=== PATIENT | female | born 1955 | race Caucasian/White ===

== ENCOUNTER 2017-02-03 08:28 | Day surgery (SDC) | payer MEDICARE ==
[~2017-02-03] VITALS: Ht 154.9 cm; Wt 67.4 kg
[~2017-02-03 08:28] MED LIST: CALC-267 PO; CHOL50009 PO; GLUC100015 PO; INHALER; NAPR-688 PO; OMEG-135 PO; RANI25TA PO; SYMB80120 INHALATION
[2017-02-03] MEDS ORDERED: PROPOFOL 40 ML ONE (09:01)
[2017-02-03] MEDS ORDERED: LIDOCAINE 2% (SDV) 5 ML INJ ONE (09:01)
[2017-02-03] MEDS ORDERED: VENTOLIN (09:11)
[2017-02-03] MEDS ORDERED: FENOFIBRATE (09:11)
[2017-02-03 09:13] VITALS: Ht 154.9 cm; Wt 67.4 kg
[2017-02-03 09:34] VITALS: BP 136/69; PULSE 68; RESP 18
--- NOTE | 2017-02-03 10:23 | OPPN ---
Date/Time of Note Date/Time of Note DATE: 02/03/17 TIME: 10:22 Operative Report Preoperative Diagnosis Abdominal pain Chronic heartburn Change in bowel habit History of colon polyps Postoperative Diagnosis Gastroesophageal reflux disease Gastritis with erosions Internal hemorrhoids No colon neoplasm is identified Operation/Procedure Performed Esophagogastroduodenoscopy and biopsy Colonoscopy Surgeon see signature line litigation legal assistant None Anesthesia: MAC Estimated blood loss: none Transfusion Required none Specimen Gastric mucosal biopsy Grafts/Implants none Complications none KRISTA MAURICE MD Feb 03, 2017 10:23
[2017-02-03 10:54] VITALS: BP 109/58; PULSE 56; RESP 18
--- NOTE | 2017-02-04 06:47 | GILP ---
DATE OF PROCEDURE: NAME OF PROCEDURES: 1. Esophagogastroduodenoscopy and biopsy. 2. Colonoscopy. SURGEON: Krista Francisco MD PREOPERATIVE DIAGNOSES: 1. Abdominal pain. 2. Chronic heartburn. 3. Change in the bowel habit. 4. History of colon polyps. POSTOPERATIVE DIAGNOSES: 1. Gastroesophageal reflux disease. 2. Gastritis with erosions. 3. Gastric mucosal biopsies were taken for Helicobacter pylori test. 4. Colonoscopy all the way to the cecum. 5. Internal hemorrhoids. 6. No colon neoplasm was identified. INDICATION FOR THE PROCEDURE: Ms. Neema Johnson is a 61-year-old female patient who had upper abdomin al pain and chronic heartburn, not responding to therapy. She also noticed a change in the bowel luther bit. She had history of colon polyps. The patient was scheduled for endoscopy and colonoscopy for further evaluation. The procedures and possible complications are well explained to the patient. The patient understood and consented to the procedure. DESCRIPTION OF PROCEDURE: Under the influence of anesthesia, the gastroscope was carefully introduc ed into the esophagus and under direct vision, it was advanced to the stomach and through the pyloru s into the duodenal bulb and descending duodenum. FINDINGS: ESOPHAGUS: The patient had gastroesophageal reflux disease. STOMACH: She had gastritis with erosions. Gastric mucosal biopsies were taken for H. pylori test. DUODENUM: Normal. The colonoscope was carefully introduced in the rectum and under direct vision, it was advanced all the way to the cecum. FINDINGS: The patient had internal hemorrhoids. No colon neoplasm was identified. She tolerated the procedures very well and there was no complication from the procedures. At the en d of the procedures, she was awake with stable vital signs and she was discharged home to the care o f her family. IMPRESSION: Please see postoperative diagnosis. PLAN: 1. Omeprazole 40 mg p.o. q.a.m. 2. Await H. pylori test report. 3. Next screening colonoscopy in 10 years. Dictated By: KRISTA SOLORZANO/ANTHONY Conf#: [id number] DID#: [id number]
== END 2017-02-03 12:06 | disposition home or self-care (01) ==
LOC: GIL 08:28
PROVIDERS: ATTEND Internal Medicine Gastroenterology
DX: R19.4 Change in bowel habit (principal); K21.9 Gastro-esophageal reflux disease without esophagitis; K29.60 Other gastritis without bleeding; K64.8 Other hemorrhoids; E78.5 Hyperlipidemia, unspecified; J45.909 Unspecified asthma, uncomplicated
CPT/HCPCS: 87081